=== PATIENT | male | born 1990 | race Two or more races ===

== ENCOUNTER 2018-11-25 10:04 | Emergency (ER) | payer MEDICAID ==
[~2018-11-25] VITALS: Ht 165.1 cm; Wt 70.0 kg
[2018-11-25 13:35] VITALS: BP 121/71
== END 2018-11-25 13:40 | disposition home or self-care (01) ==
LOC: ER 10:27
DX: L30.9 Dermatitis, unspecified (principal); F17.200 Nicotine dependence, unspecified, uncomplicated; F12.10 Cannabis abuse, uncomplicated
CPT/HCPCS: 99283